=== PATIENT | female | born 1990 | race African-American/Black ===

== ENCOUNTER 2021-11-07 15:19 | Inpatient (IN) | payer OTHER ==
[~2021-11-07] VITALS: Ht 152.4 cm; Wt 64.2 kg
[2021-11-07] VITALS (25 sets, daily range): BP systolic 92–220; BP diastolic 54–176
[2021-11-07] MEDS ORDERED: LIDOCAINE 1% MDV 20ML VIAL INFIL PRN (16:05)
[2021-11-07] MEDS ORDERED: METHYLERGONOVINE MALEATE 0.2 MG/ML VIAL (J2210) IM PRN (16:05)
[2021-11-07] MEDS ORDERED: LACTATED RINGER'S 1000 ML IV STA (16:05)
[2021-11-07] MEDS ORDERED: LR 1,000 ML IV SCH (16:05)
[2021-11-07] MEDS ORDERED: OXYTOCIN DRIP 30 UNITS in IV 1 EA IV PRN (16:05)
[2021-11-07] MEDS ORDERED: PRENTAB9 PO (16:18)
[2021-11-07 16:25] LABS: HEMATOCRIT 35.9 % (36.0-47.0); HEMOGLOBIN 11.8 g/dl (12.0-15.5); MEAN CORPUSCULAR HEMOGLOBIN 27.6 pg (27.0-33.0); MEAN CORPUSCULAR HGB CONC 32.9 g/dl (32.0-36.5); MEAN CORPUSCULAR VOLUME 84.1 fl (80.0-96.0); PLATELET COUNT, AUTOMATED 169 10^3/uL (150-450); RED BLOOD COUNT 4.27 10^6/uL (4.00-5.40)
[2021-11-07] MEDS ORDERED: FENTANYL 2MCG/ML ROPIVACAINE 0.2% IN 0.9% NACL 100ML IVBAG As Ordered ONE (17:19)
[2021-11-07] MEDS ORDERED: REFLB XX ONE (17:19)
[2021-11-07] MEDS ORDERED: EPIDURAL/PCA KEYS XX PRN (17:45)
[2021-11-07] MEDS ORDERED: LACTATED RINGER'S 1000 ML IV PRN (17:45)
[2021-11-07] MEDS ORDERED: diphenhydrAMINE 50MG/ML VIAL (J1200) IV PRN (17:45)
[2021-11-07] MEDS ORDERED: ONDANSETRON 4MG/2ML VIAL IV PRN ×2 (17:45→21:10)
[2021-11-07] MEDS ORDERED: NALOXONE INJ 0.4MG/1ML VIAL (J2310 PER 1MG) IV PRN (17:45)
[2021-11-07] MEDS ORDERED: ePHEDrine SULFATE 25 MG/5 ML(5MG/ML) SYRINGE IV PRN (17:45)
[2021-11-07] MEDS ORDERED: EPIDURAL COMMENT XX SCH (17:45)
[2021-11-07] MEDS ORDERED: REFRIGERATOR IV KEYS XX PRN (17:45)
[2021-11-07] MEDS: FENTANYL/ROPIVACAINE/NACL BAG 100 ML EPIDURAL SCH (18:29)
[2021-11-07] MEDS ORDERED: OXYTOCIN 30 UNITS IN 0.9% NaCl 500ML IV BAG (J2590) As Ordered ONE (19:45)
[2021-11-07] MEDS ORDERED: ACETAMINOPHEN 500 MG TAB PO PRN (21:10)
[2021-11-07] MEDS ORDERED: ACETAMINOPHEN TAB 650MG DOSE (2X325MG) PO PRN (21:10)
[2021-11-07] MEDS ORDERED: RHOGAM 300 MCG (1500 IU) INJ (J2790) IM SCH (21:10)
[2021-11-07] MEDS ORDERED: DIBUCAINE 1% OINTMENT 30GM TOP PRN (21:10)
[2021-11-07] MEDS ORDERED: MEASLES,MUMPS,RUBELLA VACCINE INJ (MMR-II) (90707) SC SCH (21:10)
[2021-11-07] MEDS ORDERED: OXYTOCIN DRIP 30 UNITS in IV 1 EA IV SCH (21:10)
[2021-11-07] MEDS ORDERED: IBUPROFEN 800 MG TAB PO PRN (21:10)
[2021-11-07] MEDS ORDERED: DOCUSATE SODIUM 100MG CAPSULE PO PRN (21:10)
[2021-11-08] MEDS ORDERED: UNRESOLVED CLARIFICATION ENTRY XX SCH (00:01)
[2021-11-08] MEDS: FENTANYL/ROPIVACAINE/NACL BAG 100 ML EPIDURAL SCH (03:45)
[2021-11-08 06:00] VITALS: BP 106/68
[2021-11-08] MEDS: SERTRALINE 100 MG TAB PO SCH (08:34)
[2021-11-08] MEDS: PRENATAL VITAMINS CHEWABLE TABLET PO SCH (08:34)
[2021-11-08] MEDS: IBUPROFEN 600MG TAB PO PRN ×2 (08:58→14:53)
[2021-11-08 18:14] VITALS: BP 108/59
[2021-11-08 21:00] VITALS: BP 109/60
[2021-11-09 05:59] VITALS: BP 89/54
[2021-11-09] MEDS ORDERED: ACET-683 PO (07:18)
[2021-11-09] MEDS ORDERED: COLA100C5 PO (07:18)
[2021-11-09] MEDS ORDERED: IBUP80TA PO (07:18)
[2021-11-09] MEDS: SERTRALINE 100 MG TAB PO SCH (08:31)
[2021-11-09] MEDS: PRENATAL VITAMINS CHEWABLE TABLET PO SCH (08:31)
== END 2021-11-09 13:45 | disposition home or self-care (01) | DRG 807 ==
LOC: M LDO 15:19 → M LDI 16:00 → M OBS 22:20
PROVIDERS: ADMIT Obstetrics & Gynecology; ATTEND Obstetrics & Gynecology
PROC: 10E0XZZ Delivery of Products of Conception, External Approach (ICD-10-PCS; principal; 2021-11-07)
PROC: 10907ZC Drainage of Amniotic Fluid, Therapeutic from Products of Conception, Via Natural or Artificial Opening (ICD-10-PCS; 2021-11-07)
DX: O80 Encounter for full-term uncomplicated delivery (principal); Z37.0 Single live birth; Z3A.39 39 weeks gestation of pregnancy

== ENCOUNTER → 2022-03-23 | Outpatient (CLI) | payer OTHER ==
[~2022-03-23] MED LIST: ACET-683 PO; COLA100C5 PO; IBUP80TA PO; PRENTAB9 PO
== END ==
LOC: M RAD 15:33
PROVIDERS: ATTEND Physician Assistant
DX: M25.531 Pain in right wrist (principal)

== ENCOUNTER 2023-03-05 19:11 | Emergency (ER) | payer OTHER ==
[~2023-03-05] VITALS: Ht 152.4 cm; Wt 64.3 kg
[2023-03-05] MEDS ORDERED: CIPRODEX OTIC SUSP 7.5ML AD ONE (22:45)
[2023-03-05] MEDS ORDERED: CIPR7.5D5 AD (22:48)
[2023-03-05 22:58] VITALS: BP 124/83; TEMP 99.7; O2SAT 100
== END 2023-03-05 23:01 | disposition home or self-care (01) ==
LOC: M ED 19:11
DX: H60.91 Unspecified otitis externa, right ear (principal); F32.A Depression, unspecified; M54.9 Dorsalgia, unspecified

== ENCOUNTER 2023-08-17 18:44 | Emergency (ER) | payer OTHER ==
[~2023-08-17] VITALS: Ht 152.4 cm; Wt 63.6 kg
[~2023-08-17 18:44] MED LIST changes: +CIPR7.5D5 AD
[2023-08-17] MEDS ORDERED: SERT50TA29 (18:54)
[2023-08-17] MEDS ORDERED: CYCL5TAB (18:54)
[2023-08-17] MEDS ORDERED: D 50CAP2 (18:54)
[2023-08-17 19:39] LABS: RSV AMPLIFICATION NEGATIVE (NEGATIVE)
[2023-08-17] MEDS ORDERED: BENZONATATE 100MG CAPSULE PO ONE ×2 (20:05→21:50)
[2023-08-17] MEDS ORDERED: predniSONE 20 MG TAB PO ONE (21:50)
[2023-08-17] MEDS ORDERED: ALBUTEROL 90 MCG/ACT 8GM HFA INHALER INH ONE (21:50)
[2023-08-17] MEDS ORDERED: PRED20TA PO (21:52)
[2023-08-17] MEDS ORDERED: BENZ200C70 PO (21:52)
[2023-08-17 22:14] VITALS: BP 140/90; TEMP 98.4; O2SAT 100
== END 2023-08-17 22:16 | disposition home or self-care (01) ==
LOC: M ED 18:44
DX: R05.9 Cough, unspecified (principal); F32.A Depression, unspecified
CPT/HCPCS: 71046; 87631; 99284; J7512

== ENCOUNTER → 2023-12-14 | Outpatient (REF) ==
[~2023-12-14] MED LIST changes: +BENZ200C70 PO; +CYCL5TAB; +D 50CAP2; +PRED20TA PO; +SERT50TA29
== END ==
LOC: M PLAIMG 11:20
PROVIDERS: ATTEND Nurse Practitioner Family
DX: M25.511 Pain in right shoulder (principal); M25.551 Pain in right hip; M25.552 Pain in left hip